=== PATIENT | female | born 1965 | race Caucasian/White ===

== ENCOUNTER → 2016-04-19 | Outpatient (CLI) | payer BC ==
--- NOTE | 2016-04-19 10:17 | US ---
Pelvic Sonogram (With Transvaginal) Clinical Indications: Evaluate left ovarian cyst seen on a renal ultrasound. Patient is premenopausa l with LMP 3 weeks ago. Comparison: March 28, 2016 retroperitoneal ultrasound, April 04, 2015 pelvic ultrasound. Technique: Transabdominal and endovaginal exams. Transvaginal exam is added to better evaluate the uterus and ovaries. Findings: The uterus measures 3.7 x 4.4 x 8.1 cm with a 4 mm endometrial stripe. There is a 0.8 x 0. 8 x 0.8 cm fibroid. The right ovary is unremarkable measuring 3.6 x 1.4 x 2.0 cm with normal color Doppler flow and resis tive index of 0.56. Left ovary measures 5.2 x 3.0 x 2.8 cm. There are two simple-appearing cysts. The smaller one measure s 2.7 x 2.3 x 1.2 cm. The larger one measures 3.0 x 2.8 x 3.4 cm with a small mural projection measur ing 2 mm. Impression: Two simple-appearing left ovarian cysts in a premenopausal female. The 3.4 cm predomina ntly simple-appearing cyst has a 2 mm mural projection. Consider follow up in 6 months to ensure stab ility of this larger cyst that has an otherwise benign appearance.
--- NOTE | 2016-04-19 10:36 | MA ---
Bilateral Digital Screening Mammography Clinical History: 50-year-old female who has had a prior benign right-sided breast biopsy, as well as fibrous tissue removed from the left over 20 years ago, and presents for routine annual mammographic screening. There is no family history of breast cancer. Technique: Digital CC and MLO views of each breast are compared with previous studies dated January 142013, July 24, 2013, December 25, 2012, October 10, 2012, and December 28, 2010. This examination was processed by the [employer] computer-aided detection system. Breast Density: Type C. CAD Evaluation: Reviewed. Findings: There is a moderately dense, heterogeneous residual fibroglandular pattern, which limits ma mmographic detection of noncalcified masses. There is no focal neodensity, or interim architectural c hange. There are no suspicious clustered microcalcifications. Impression: Negative mammography. BI-RADS Category: 1. Recommendation: Routine annual mammographic screening. [facility] will send a result letter to the patient. Negative mammography should not preclude additional work-up of a clinically suspicious finding. The patient's information is entered into a reminder system with a target due date for her next mammo gram.
== END ==
LOC: BMCIMAGING 09:14
PROVIDERS: ATTEND Internal Medicine
DX: Z12.31 Encounter for screening mammogram for malignant neoplasm of breast (principal); N83.202 Unspecified ovarian cyst, left side
CPT/HCPCS: G0202

== ENCOUNTER → 2016-11-01 | Outpatient (CLI) | payer BC | LOC: BMCIMAGING 15:06 | PROVIDERS: ATTEND Internal Medicine | DX: N83.292 Other ovarian cyst, left side (principal); N83.291 Other ovarian cyst, right side; D25.9 Leiomyoma of uterus, unspecified ==

== ENCOUNTER → 2017-04-11 | Outpatient (CLI) | payer BC | LOC: BMCIMAGING 08:01 | PROVIDERS: ATTEND Obstetrics & Gynecology | DX: R10.31 Right lower quadrant pain (principal); D25.1 Intramural leiomyoma of uterus; N83.201 Unspecified ovarian cyst, right side ==

== ENCOUNTER → 2017-06-04 | Outpatient (CLI) | payer OTHER | LOC: BMCIMAGING 08:06 | PROVIDERS: ATTEND Internal Medicine | DX: R10.30 Lower abdominal pain, unspecified (principal) ==

== ENCOUNTER → 2018-04-30 | Outpatient (CLI) | payer OTHER | LOC: BMCIMAGING 15:12 | PROVIDERS: ATTEND Obstetrics & Gynecology | DX: Z12.31 Encounter for screening mammogram for malignant neoplasm of breast (principal) ==